=== PATIENT | female | born 1980 | race Two or more races ===

== ENCOUNTER 2021-01-04 13:57 | Outpatient (CLI) | payer OTHER | END 2021-01-04 15:10 | disposition home or self-care (01) | LOC: SONOGRAMA 13:57 | PROVIDERS: ATTEND Obstetrics & Gynecology | DX: N92.1 Excessive and frequent menstruation with irregular cycle (principal) ==

== ENCOUNTER 2023-02-10 08:03 | Outpatient (CLI) | payer OTHER | END 2023-02-10 08:14 | disposition home or self-care (01) | LOC: SONOGRAMA 08:03 | PROVIDERS: ATTEND Obstetrics & Gynecology | DX: R10.2 Pelvic and perineal pain (principal) ==

== ENCOUNTER → 2023-04-11 07:02 | Outpatient (CLI) | payer OTHER ==
[2023-04-11 07:26] LABS: HEMATOCRIT 40.4 % (36.0-45.00); HEMOGLOBIN 13.4 g/dL (12.0-15.00); MEAN CELL VOLUME 88.9 fL (80.00-100.00); MEAN CORPUSCULAR HEMOGLOBIN 29.5 pg (27.00-32.0); MEAN CORPUSCULAR HGB CONC 33.2 g/dl (32.0-36.0); PLATELET COUNT 286 K/uL (150-450); RED BLOOD COUNT 4.55 M/uL (4.00-6.00); RED CELL DISTRIBUTION WIDTH 13.6 % (11.5-14.5)
[2023-04-11 08:01] LABS: ALBUMIN 3.6 gm/dL (3.4-5.0); BILIRUBIN TOTAL 0.39 mg/dL (0.3-1.2); CALCIUM 8.9 mg/dL (8.5-10.1); CHOL HDL RATIO 4.5 (0-5.0); CREATININE SERUM 0.81 mg/dL (0.55-1.02); GFR 76.81; GLOBULINA 3.4 G/DL (2.4-3.5); POTASSIUM 4.61 mEq/L (3.5-5.1); TSH 1.38 uIU/mL (0.358-3.74)
[2023-04-11 09:38] LABS: VITAMIN D3 25 HYDROXY 75.66 ng/ml (30-120)
== END | disposition home or self-care (01) ==
LOC: LAB 07:02
DX: E11.21 Type 2 diabetes mellitus with diabetic nephropathy (principal); E03.4 Atrophy of thyroid (acquired); D68.9 Coagulation defect, unspecified; E55.9 Vitamin D deficiency, unspecified; D53.8 Other specified nutritional anemias

== ENCOUNTER 2023-04-11 07:28 | Outpatient (CLI) | payer OTHER | END 2023-04-11 07:35 | disposition home or self-care (01) | LOC: RAD 07:28 | DX: I11.9 Hypertensive heart disease without heart failure (principal) ==

== ENCOUNTER 2023-06-07 08:51 | Outpatient (CLI) | payer OTHER | END 2023-06-07 08:58 | disposition home or self-care (01) | LOC: SONOGRAMA 08:51 | DX: M77.12 Lateral epicondylitis, left elbow (principal) ==

== ENCOUNTER 2023-10-06 07:26 | Outpatient (CLI) | payer OTHER | END 2023-10-06 07:27 | disposition home or self-care (01) | LOC: LAB 07:26 | DX: E78.49 Other hyperlipidemia (principal) ==

== ENCOUNTER 2025-04-11 07:12 | Outpatient (CLI) | payer OTHER ==
[2025-04-11 08:02] LABS: URINE APPEARANCE Clear; URINE BILIRRUBIN Negative (NEGATIVE); URINE BLOOD Negative; URINE COLOR Yellow; URINE GLUCOSE Negative (NEGATIVE); URINE KETONE Negative (NEGATIVE); URINE LEUKOCYTE Negative; URINE NITRATE Negative; URINE PROTEIN Negative (NEGATIVE); URINE UROBILINOGEN 0.2 E.U./dl
[2025-04-11 08:06] LABS: URINE BACTERIA 172.7 uL (0.0-1933); URINE EPITHELIAL CELLS 44.9 uL (0.0-38.8); URINE RBC 7.1 uL (0.0-20.8); URINE WBC 4.0 uL (0.0-23.2)
[2025-04-11 08:19] LABS: BASO % 0.6 % (0.1-1.2); EOS # 0.08 (0.04-0.54); EOS % 1.2 % (0.7-7.0); LYMPH # 2.08 (1.18-3.74); LYMPH % 30.4 % (19.3-53.1); MEAN PLATELET VOLUME 10.60 fl (9.4-12.4); MONO # 0.47 (0.24-0.82); MONO % 6.9 % (4.7-12.5); NEUT # 4.15 (1.56-6.13); NEUT % 60.5 % (34.0-71.1); RED CELL DISTRIBUTION WIDTH 13.3 % (11.6-14.4)
[2025-04-11 08:23] LABS: URINE CAST 0.00 uL (0.0-1.40)
[2025-04-11 08:44] LABS: INR 1.04
[2025-04-11 08:58] LABS: ALT/SGPT 24.0 U/L (12-78); AST/SGOT 12.0 U/L (15-37); BILIRUBIN TOTAL 0.45 mg/dL (0.3-1.2); BUN CREA RATIO 22.0 (7.0-25.0); CREATININE SERUM 0.68 mg/dL (0.55-1.02); GFR 93.15; GLOBULINA 2.9 G/DL (2.4-3.5); GLUCOSE FASTING 90.0 mg/dL (65-100); OSMOLALITY SERUM 280.0 MOSM/KG (275-295)
== END 2025-04-11 07:25 | disposition home or self-care (01) ==
LOC: LAB 07:12
DX: R79.1 Abnormal coagulation profile (principal); A63.8 Other specified predominantly sexually transmitted diseases; B18.8 Other chronic viral hepatitis